=== PATIENT | male | born 1995 | race Caucasian/White ===

== ENCOUNTER 2017-12-07 19:25 | Emergency (ER) | payer BC | END 2017-12-08 01:33 | disposition home or self-care (01) | LOC: FTE 19:25 | DX: S29.012A Strain of muscle and tendon of back wall of thorax, initial encounter (principal); S39.012A Strain of muscle, fascia and tendon of lower back, initial encounter; V49.40XA Driver injured in collision with unspecified motor vehicles in traffic accident, initial encounter | CPT/HCPCS: 72072; 72100; 99283-25 ==